=== PATIENT | male | born 1940 | race Caucasian/White ===

== ENCOUNTER 2017-03-04 07:04 | Emergency (ER) | payer MEDICARE ==
[2017-03-04 07:12] VITALS: BP 128/82
--- NOTE | 2017-03-04 08:03 | UC ---
Respiratory Complaint HPI - HPI Summary HPI Summary: PT REPORTS THAT 2 WEEKS AGO HE DEVELOPED A FLU LIKE ILLNESS WITH GOLDBERG, MYALGIAS, COUGH PRODUCTIVE OF YELLOW SPUTUM, NASAL/CHEST CONGESTION. PT REPORTS COUGHING SPAASMS. DEMIES SOB, CP. PT STATES THAT HE HAS NOT BEEEN ALBE TO SHAKE IT. - History of Current Complaint Chief Complaint: UCRespiratory Stated Complaint: COUGH COLD SYMPTOMS Time Seen by Provider: 03/04/17 07:19 Hx Obtained From: Patient Onset/Duration: Gradual Onset, Lasting Weeks - 2, Still Present Timing: Constant Severity Initially: Moderate Severity Currently: Moderate Character: Sputum Description: - YELLOW Aggravating Factors: Allergens Alleviating Factors: Nothing Associated Signs And Symptoms: Positive: URI, Nasal Congestion. Negative: Dyspnea, Fever, Chills, Pleuritic Chest Pain, Wheezing, Hemoptysis, Hoarseness, Sinus Discomfort - Allergies/Home Medications Allergies/Adverse Reactions: Allergies Allergy/AdvReac Type Severity Reaction Status Date / Time No Known Allergies Allergy Verified 04/11/16 09:37 PMH/Surg Hx/FS Hx/Imm Hx Previously Healthy: No Cardiovascular History: Myocardial Infarction GI/ History: Kidney Stones - Surgical History Surgical History: Yes Surgery Procedure, Year, and Place: LEFT ARM AMPUTATION 1997; stent after [place] 2013. VASCECTOMY 1969 - Family History Known Family History: Positive: Cardiac Disease, Hypertension - Social History Occupation: Retired Lives: With Family Alcohol Use: Occasionally Substance Use Type: None Smoking Status (MU): Former Smoker Amount Used/How Often: 1/2 PPD X 30 YEARS Length of Time of Smoking/Using Tobacco: 30 years Have You Smoked in the Last Year: No When Did the Patient Quit Smoking/Using Tobacco: 1990 - Immunization History Most Recent Influenza Vaccination: 2012 Most Recent Tetanus Shot: UNKNOWN Most Recent Pneumonia Vaccination: 2012 Review of Systems Constitutional: Negative Skin: Negative Eyes: Negative ENT: Sore Throat, Nasal Discharge Respiratory: Cough Cardiovascular: Negative Gastrointestinal: Negative Musculoskeletal: Myalgia Neurological: Headache Psychological: Negative All Other Systems Reviewed And Are Negative: Yes Physical Exam Triage Information Reviewed: Yes Appearance: Well-Appearing, No Pain Distress, Well-Nourished Vital Signs: Initial Vital Signs Temp 98.6 F 03/04/17 07:09 Pulse 70 03/04/17 07:09 Resp 18 03/04/17 07:09 BP 128/82 03/04/17 07:09 Pulse Ox 97 03/04/17 07:09 Vital Signs Reviewed: Yes Eyes: Positive: Conjunctiva Clear. Negative: Discharge ENT: Positive: Hearing grossly normal, Pharynx normal, Nasal congestion, Nasal drainage, TMs normal. Negative: Tonsillar swelling, Tonsillar exudate, Trismus , Muffled/hoarse voice Neck: Positive: Supple, Nontender, No Lymphadenopathy Respiratory: Positive: Lungs clear, No respiratory distress, No accessory muscle use, Expiration - PROLONGED AT BASES Cardiovascular: Positive: RRR, No Murmur Musculoskeletal Exam: Normal Neurological: Positive: Alert, Muscle Tone Normal Psychological: Positive: Age Appropriate Behavior Skin Exam: Normal UC Diagnostic Evaluation - Laboratory O2 Sat by Pulse Oximetry: 97 Respiratory Course/Dx - Differential Dx/Diagnosis Differential Diagnosis/HQI/PQRI: Bronchitis, Lower Resp Infection, Sinusitis Provider Diagnoses: BRONCHITIS Discharge - Discharge Plan Condition: Stable Disposition: HOME Prescriptions: Azithromycin TAB* [Zithromax TAB (Z-MINAL) 250 mg #6 tabs] 0 mg PO .SEE INSTRUCTIONS #6 tab Benzonatate CAP* [Tessalon 100 MG CAP*] 100 mg PO TID #30 cap guaiFENesin ER TAB [Mucinex*] 600 mg PO BID PRN #1 box PRN Reason: Cough Patient Education Materials: Acute Bronchitis (ED) Referrals: Willy Arrington MD [Primary Care Provider] - (FOLLOW UP IN 3-5 DAYS) Additional Instructions: INHALED BRONCHODILATORS: You have received a prescription for an inhaled bronchodilator -- a medication which stimulates the airways in the lung to dilate. This improves the flow of air in asthma, bronchitis, and emphysema. These medicines have some similarity to adrenaline, and can cause similar side effects: shakiness, racing heart, and a sense of nervousness. These side effects decrease with time. Contact your doctor if these side effects are severe. Do not over-use the medicine. Too-frequent use of the inhaler may make it ineffective. Call your doctor if the inhaler is not controlling your symptoms at the prescribed doses. EXPECTORANT MEDICATION: WE SENT IN A SCRIPT FOR MUCINEX SO THAT IT IS EASIER FOR YOU TO PICK THE RIGHT MED AT THE PHARMACY. HOWEVER, YOU CAN ALSO GO TO THE [facility] AND BUY PLAIN GUAIFENESIN WITHOU BINDERS OR FILLERS. An expectorant medicine has been prescribed. This type of drug makes mucous thinner, helping the sinuses, nose, and bronchial tubes to remain free of pus and mucous. Expectorants make a cough less severe and more comfortable, and help infected sinuses drain. In general, antihistamines defeat the purpose of the expectorant by making mucous thicker. They should be avoided unless specifically recommended by your physician. TESSALON PERLES: You have received a prescription for Tessalon Perles (benzonatate). This is a non-narcotic medicine for relief of cough. It usually works in about 15- 20 minutes and lasts around four hours. Tessalon Perles should be swallowed. They should not be chewed or dissolved in the mouth (this can produce temporary numbing of the mouth and choking can occur). If you develop any adverse effects such as wheezing, shortness of breath, hives, rash, itching, or lightheadedness, please return at once. WE RECOMMEND THAT YOU HOLD OFF ON TAKING ANTIBIOTICS FOR AT LEAST 2-3 MORE DAYS. IF YOU ARE IMPROVING, YOU WILL NOT NEED IT. AZITHROMYCIN: Azithromycin (Zithromax) is a broad spectrum antibiotic in the same class as erythromycin. It can treat a variety of bacterial infections, but is most frequently used for respiratory infections. Azithromycin is extremely long-lasting. It accumulates in body tissues and continues to kill bacteria for many days. In order to improve absorption, Azithromycin should be taken at least one hour before or two hours after a meal. It does not have the same strong tendency to upset the stomach as erythromycin and is usually very well tolerated. Patients who have had a rash or other true allergic reactions to erythromycin should not take this medication. Call if you develop gastrointestinal distress, severe diarrhea, rash, hives, itching, or shortness of breath. ANYTIME YOU TAKE AN ANTIBIOTIC, IT IS IMPORTANT TO REPLENISH THE BODY'D SUPPLY OF "GOOD BACTERIA." YOU CAN GET GOOD BACTERIA FROM HIGH QUALITY CULTURED FOODS SUCH LOCAL YOGURT, SOUR KRAUT, OLIMPIA ISELA, NATURALLY FERMENTED PICKLES AND PROBIOTIC DRINKS. YOU CAN ALSO GET GOOD BACTERIA FROM A PROBIOTIC SUPPLEMENT.
== END 2017-03-04 08:02 | disposition home or self-care (01) ==
LOC: UCEAST 07:04
DX: J40 Bronchitis, not specified as acute or chronic (principal); Z87.891 Personal history of nicotine dependence
CPT/HCPCS: 99212; G0463

== ENCOUNTER 2018-06-05 07:52 | Emergency (ER) | payer MEDICARE ==
[2018-06-05 08:06] VITALS: BP 136/87
--- NOTE | 2018-06-05 08:32 | UC ---
Respiratory Complaint HPI - HPI Summary HPI Summary: 77 year old male with URI Sx . Headache, sorethroat, feeling unwell for a few days. + cough with phlegm that is now green and productive. 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 sinus pressure worsened this morning been present for about a week and now with headache [ End ] - History of Current Complaint Chief Complaint: UCGeneralIllness Stated Complaint: CONGESTED,COUGH Time Seen by Provider: 06/05/18 08:29 Hx Obtained From: Patient Onset/Duration: Gradual Onset Timing: Constant Pain Intensity: 0 Character: Cough: Productive Associated Signs And Symptoms: Positive: URI, Nasal Congestion - Allergies/Home Medications Allergies/Adverse Reactions: Allergies Allergy/AdvReac Type Severity Reaction Status Date / Time ticagrelor [From Brilinta] Allergy Itching Verified 06/05/18 08:06 PMH/Surg Hx/FS Hx/Imm Hx Previously Healthy: Yes Endocrine History: Dyslipidemia Cardiovascular History: Hypertension GI/ History: Gastroesophageal Reflux - Surgical History Surgical History: Yes Surgery Procedure, Year, and Place: LEFT ARM AMPUTATION 1997; stent after [place] 2013. VASCECTOMY 1969 - Family History Known Family History: Positive: Cardiac Disease, Hypertension - Social History Occupation: Retired Alcohol Use: Occasionally Substance Use Type: None Smoking Status (MU): Former Smoker Amount Used/How Often: 1/2 PPD X 30 YEARS Length of Time of Smoking/Using Tobacco: 30 years Have You Smoked in the Last Year: No When Did the Patient Quit Smoking/Using Tobacco: 1990 - Immunization History Most Recent Influenza Vaccination: 2012 Most Recent Tetanus Shot: UNKNOWN Most Recent Pneumonia Vaccination: 2012 Review of Systems Constitutional: Fatigue ENT: Sore Throat, Ear Ache, Nasal Discharge, Sinus Congestion, Sinus Pain/ Tenderness Respiratory: Cough Is Patient Immunocompromised?: No All Other Systems Reviewed And Are Negative: Yes Physical Exam Triage Information Reviewed: Yes Appearance: Well-Appearing, No Pain Distress, Well-Nourished Vital Signs: Initial Vital Signs Temp 98.2 F 06/05/18 07:59 Pulse 69 06/05/18 07:59 Resp 20 06/05/18 07:59 BP 136/87 06/05/18 07:59 Pulse Ox 96 06/05/18 07:59 Eye Exam: Normal ENT Exam: Normal ENT: Positive: Nasal congestion, TM dull, Sinus tenderness - b/l frontal and maxillary sinus tenderness Dental Exam: Normal Neck exam: Normal Neck: Positive: 1 Respiratory Exam: Normal Cardiovascular Exam: Normal Musculoskeletal Exam: Normal Neurological Exam: Normal Psychological Exam: Normal Skin Exam: Normal UC Diagnostic Evaluation - Laboratory O2 Sat by Pulse Oximetry: 96 Respiratory Course/Dx - Course Course Of Treatment: WITH RECENT corticosteroid concern for mild immunosuppresion -- advise conservative treatment and if sx not improved start oral abx and he is aware of SE like C diff . f/u with PCP or RTO if any concerns - Differential Dx/Diagnosis Differential Diagnosis/HQI/PQRI: Bronchitis, Lower Resp Infection, Sinusitis Provider Diagnoses: sinusitis Discharge - Sign-Out/Discharge Documenting (check all that apply): Patient Departure All imaging exams completed and their final reports reviewed: No Studies - Discharge Plan Condition: Good Disposition: HOME Prescriptions: Amoxicillin/Clavulanate TAB* [Augmentin TAB 875*] 875 mg PO BID 10 Days #20 tab Patient Education Materials: Sinusitis (ED) Referrals: Willy Arrington MD [Primary Care Provider] - 4 Days Additional Instructions: Please continue flonase 2 sprays in each nostril daily and consider starting claritin daily as well. - Billing Disposition and Condition Condition: GOOD Disposition: Home
== END 2018-06-05 08:47 | disposition home or self-care (01) ==
LOC: UCEAST 07:52
DX: J32.9 Chronic sinusitis, unspecified (principal); I10 Essential (primary) hypertension; Z88.8 Allergy status to other drugs, medicaments and biological substances; Z87.891 Personal history of nicotine dependence
CPT/HCPCS: 99212; G0463

== ENCOUNTER 2019-04-06 11:42 | Emergency (ER) | payer MEDICARE ==
--- OUTSIDE RECORDS SUMMARY | 2019-04-06 11:48 | XMS REPORT | Continuity of Care Document ---
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., [facility] WITH [facility], Onset: 06/27/2015 [place] coronary artery without angina [facility] pectoris Coronary arteriosclerosis Bakari Christina M.D., [facility] WITH [facility], Onset: 06/21/2014 [facility] Mixed hyperlipidemia Bakari Christina M.D., [facility] WITH [facility], Onset: 06/21/2014 [facility] True posterior myocardial infarction Bakari Christina M.D., [facility] WITH [facility], Onset: 2013 [facility] Social History Type Date Description Comments Sex Unknown Marital Status Lives With 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 Rash 07/28/2014 Pantoprazole Rash ? 07/28/2014 Inactive Allergies NKDA 06/21/2014 Medications Active Medications SIG Qnty Indications Ordering Date Provider Aspirin 1 by mouth Unknown 81mg Tablets every day Metoprolol Succinate ER 1/2 tab by 45tabs Bakari Christina, 25mg mouth every day M.D., [facility], Tablets ER 24HR [facility] Atorvastatin Calcium take 1 tablet 90tabs Bakari Christina, 20mg at bedtime M.Erickson, [facility] WITH [facility], Tablets [facility] Nitrostat one sl q5min up 25tabs Bakari Christina, 0.4mg Tablets Sub to 3 doses as M.D., [facility], needed [facility] Multi-Vitamin/Minerals 1 by mouth 30tabs Unknown every day Tablets Levocetirizine 1 by mouth Unknown Dihydrochloride every day 5mg Tablets Nasonex 2 sprays to Unknown 50mcg/Act Suspension each nostril twice daily prn Nizatidine take 1 capsule Unknown 150mg Capsules by mouth two times daily Ferrousul once daily Unknown 325(65Fe) mg Tablets Vitamin C Immune Health 1 by mouth Unknown 500mg every day Chewtabs Omeprazole 1 by mouth Unknown 20mg Capsules DR every day Prednisone take four Unknown 1mg Tablets tablets by mouth once daily History Medications Clopidogrel Bisulfate 1 tab by mouth 90tabs Bakari Christina, 07/22/2014 - 75mg daily M.D., [facility], [facility] 06/10/2016 Tablets Pantoprazole Sodium 1 tab by mouth 30tabs Bakari Christina, 06/25/2014 - 40mg every day M.D., [facility] WITH [facility], [facility] 07/27/[address] Cintron 1 tab by mouth 180tabs Unknown - 90mg Tablets twice a day 07/27/2014 Famotidine take one tablet 60tabs Unknown - 20mg Tablets by mouth twice a 02/06/2015 day Calcium daily Unknown - 03/30/2019 Triamcinolone Acetonide 2-3 times every 30units Unknown - day 02/06/2015 0.1% Ointment Tums 2 tabs bid Unknown - 500mg Chewtabs 02/06/2015 Omeprazole 1 by mouth every Unknown - 40mg Capsules DR day 06/26/2015 Probiotic 1 by mouth every Unknown - Capsules day 08/24/2018 Co Q-10 1 by mouth every Unknown - 200mg Capsules day 06/02/2017 Clopidogrel Bisulfate 1 by mouth every Unknown - 75mg day 05/30/2017 Tablets Collagen 1 pill daily Unknown - 500mg Capsules 08/24/2018 Vital Signs Date Vital Result Comment 03/31/2019 8:14am Height 68.5 inches 5'8.50" Weight 203.00 lb with shoes Heart Rate 72 /min BP Systolic Sitting 118 mmHg rue reg cuff BP Diastolic Sitting 80 mmHg rue reg cuff BP Systolic Standing 120 mmHg rue reg cuff BP Diastolic Standing 80 mmHg rue reg cuff Respiratory Rate 14 /min BMI (Body Mass Index) 30.4 kg/m2 Ejection Fraction 45-50% echo. 07/28/14 04/09/2018 2:49pm Height 68.5 inches 5'8.50" Weight 184.00 lb w/ shoes Heart Rate 64 /min BP Systolic Sitting 112 mmHg lue rg cuff BP Diastolic Sitting 76 mmHg lue rg cuff BMI (Body Mass Index) 27.6 kg/m2 Ejection Fraction 57% w/ sts stress 06/17/18 01/28/2018 4:07pm Height 68.5 inches 5'8.50" Weight 192.00 lb w/ shoes Heart Rate 76 /min BP Systolic Sitting 122 mmHg lue rg cuff BP Diastolic Sitting 82 mmHg lue rg cuff BP Systolic Standing 142 mmHg lue rg cuff BP Diastolic Standing 84 mmHg lue rg cuff Respiratory Rate 18 /min BMI (Body Mass Index) 28.8 kg/m2 Ejection Fraction 57% at sts stress test 06/17/17 06/18/2017 2:09pm Height 68.5 inches 5'8.50" Weight 197.00 lb with shoes Heart Rate 70 /min BP Systolic Sitting 112 mmHg rue reg cuff BP Diastolic Sitting 76 mmHg rue reg cuff BP Systolic Standing 116 mmHg rue reg cuff BP Diastolic Standing 80 mmHg rue reg cuff Respiratory Rate 18 /min BMI (Body Mass Index) 29.5 kg/m2 Ejection Fraction 45-50% echo 07/28/2014 06/03/2017 3:07pm Height 68.5 inches 5'8.50" Weight 198.00 lb Heart Rate 86 /min BP Systolic Sitting 110 mmHg rue reg cuff BP Diastolic Sitting 76 mmHg rue reg cuff BP Systolic Standing 110 mmHg rue, reg cuff BP Diastolic Standing 70 mmHg rue, reg cuff BP Systolic Lying Down 110 mmHg lue reg cuff BP Diastolic Lying Down 74 mmHg lue reg cuff Respiratory Rate 18 /min BMI (Body Mass Index) 29.7 kg/m2 Ejection Fraction 45-50% echo 07/28/2014 06/11/2016 9:28am Height 68.5 inches 5'8.50" Weight 190.00 lb Heart Rate 64 /min 72 BP Systolic Sitting 134 mmHg right arm, reg cuff BP Diastolic Sitting 88 mmHg right arm, reg cuff BP Systolic Standing 132 mmHg right arm, reg cuff BP Diastolic Standing 88 mmHg right arm, reg cuff Respiratory Rate 16 /min BMI (Body Mass Index) 28.5 kg/m2 Ejection Fraction 45-50% 07/28/14 06/27/2015 8:27am Height 68.5 inches 5'8.50" Weight 187.00 lb Heart Rate 66 /min 70 BP Systolic Sitting 130 mmHg right arm, reg cuff BP Diastolic Sitting 80 mmHg right arm, reg cuff BP Systolic Standing 114 mmHg right arm, reg cuff BP Diastolic Standing 80 mmHg right arm, reg cuff Respiratory Rate 20 /min BMI (Body Mass Index) 28.0 kg/m2 Ejection Fraction 45-50% 07/28/14 02/07/2015 9:45am Height 68.5 inches 5'8.50" Weight 189.00 lb Heart Rate 64 /min 70 BP Systolic Sitting 126 mmHg right arm, reg cuff BP Diastolic Sitting 86 mmHg right arm, reg cuff BP Systolic Standing 122 mmHg right arm, reg cuff BP Diastolic Standing 86 mmHg right arm, reg cuff Respiratory Rate 20 /min BMI (Body Mass Index) 28.3 kg/m2 Ejection Fraction 45-50% 07/28/14 07/28/2014 3:08pm Height 68.5 inches 5'8.50" Weight 178.00 lb Heart Rate 74 /min 84 BP Systolic Sitting 118 mmHg right arm, reg cuff BP Diastolic Sitting 86 mmHg right arm, reg cuff BP Systolic Standing 118 mmHg right arm, reg cuff BP Diastolic Standing 82 mmHg right arm, reg cuff Respiratory Rate 20 /min BMI (Body Mass Index) 26.7 kg/m2 06/21/2014 3:34pm Height 68.5 inches 5'8.50" Weight 171.00 lb Heart Rate 68 /min 74 BP Systolic Sitting 112 mmHg right arm, reg cuff BP Diastolic Sitting 88 mmHg right arm, reg cuff BP Systolic Standing 114 mmHg right arm, reg cuff BP Diastolic Standing 88 mmHg right arm, reg cuff Respiratory Rate 20 /min BMI (Body Mass Index) 25.6 kg/m2 Results Test Date Facility Test Result H/L Range Note CKMB 08/29/2015 [facility] CKMB ng/mL 1.0 ng/mL N 0.6-6.3 [address] [place] [address] [phone] Laboratory test 08/29/2015 [facility] Troponin-I 0.00 ng/mL N <0.03 1 finding [address] [facility] (TnI) [place] [address] [phone] Creatine Kinase(CK) 48 U/L N 10-223 2 Inr/Protime 07/17/2014 [facility] Inr 0.90 N 0.85-1.06 [address] [place] [address] [phone] Basic Metabolic 07/17/2014 [facility] Sodium 139 mmol/L N 133- 145 Panel [address] [place] [address] [phone] Potassium 3.9 mmol/L N 3.7-5.6 Chloride 106 mmol/L N 101-111 Co2 Carbon Dioxide 28 mmol/L N 22-32 Anion Gap 5 mmol/L N 2-11 Glucose 84 mg/dL N 70-100 Blood Urea Nitrogen 15 mg/dL N 6-24 Creatinine 0.85 mg/dL N 0.67-1.17 BUN/Creatinine Ratio 17.6 N 8-20 Calcium 9.2 mg/dL N 8.6-10.3 Egfr Non- 88.4 N >60 Egfr 113.6 N >60 3 CBC No Diff 07/17/2014 [facility] White Blood 6.5 10^3/uL N 4.8-10.[address] [place] [address] [phone] Red Blood Count 4.58 10^6/uL N 4.0-5.4 Hemoglobin 14.6 g/dL N 14.0-18.0 Hematocrit 43 % N 42-52 Mean Corpuscular Volume 94 fL N 80-94 Mean Corpuscular Hemoglobin 32 pg High 27-31 Mean Corpuscular HGB Conc 34 g/dL N 31-36 Red Cell Distribution Width 13 % N 10.5-15 Platelet Count 189 10^3/uL N 150-450 Mean Platelet Volume 9 um3 N 7.4-10.4 1 Reference Range and Interpretation: TnI (ng/mL) Interpretation Less Than 0.03 ng/mL Not supportive of diagnosis of [place] 0.03 - 0.50 ng/mL Indeterminate: suggest serial studies if clinically indicated. Greater than 0.5 ng/mL Consistent with diagnosis of [place] [address] Arrington 3 Because ethnic data is not always readily available, this report includes an eGFR for both -Americans and non- Americans. The National Kidney Disease Education Program (NKDEP) does not endorse the use of the MDRD equation for patients that are not between the ages of 18 and 70, are , have extremes of body size, muscle mass, or nutritional status, or are non- or non-. According to the National Kidney Foundation, irrespective of diagnosis, the stage of the disease is based on the level of kidney function: Stage Description GFR(mL/min/1.73 m(2)) 1 Kidney damage with normal or decreased GFR 90 2 Kidney damage with mild decrease in GFR 60-89 3 Moderate decrease in GFR 30-59 4 Severe decrease in GFR 15-29 5 Kidney failure <15 (or dialysis) Procedures Date Code Description Status 03/31/2019 65069 EKG Tracing & Interpretation Completed 01/28/2018 35143 EKG Tracing & Interpretation Completed 06/17/2017 04334 Treadmill Interp/Report Only Completed 06/17/2017 25274 Stress Test Supervsn W/Out I/R Completed 06/03/2017 19771 EKG Tracing & Interpretation Completed 06/11/2016 54661 EKG Tracing & Interpretation Completed 02/07/2015 82233 EKG Tracing & Interpretation Completed 07/28/2014 75006 ECHO Transthorasic Realtime 2D W Doppler & Color Flow Hosp Completed 06/21/2014 45288 EKG Tracing & Interpretation Completed 06/15/2014 73999 EKG, Interpretation Only Completed 06/14/2014 75599 ECHO Transthorasic Realtime 2D W Doppler & Color Flow Hosp Completed 06/14/2014 70925 ECHO Transthorasic Realtime 2D W Doppler & Color Flow Hosp Completed 06/14/2014 63126 EKG, Interpretation Only Completed 06/13/2014 12704 Left Heart Cath. Incl S/I Coronaries, Angio S/I V Gram If Completed Done 06/13/2014 81584 EKG, Interpretation Only Completed 06/13/2014 76075 Revascularization Acute Total/Subtotal Occlusion Completed Encounters Type Date Location Provider Dx Diagnosis Office Visit 04/09/2018 [facility] Bakari Christina, R06.02 Shortness of 3:00p Of [employer] AT [facility], breath [facility] Office Visit 01/28/2018 [facility] Bakari Christina, R06.02 Shortness of 3:40p Of [facility] AT [facility], [facility]ED WITH [facility], breath [facility] E78.2 Mixed hyperlipidemia Office Visit 06/18/2017 2:20p [facility] Bakari Christina, R06.02 Shortness of Of [facility] AT [facility], [facility] WITH [facility], breath [facility] Office Visit 06/03/2017 3:00p [facility] Bakari Christina, I25.10 Athscl heart Of [facility] AT [facility], [facility] WITH [facility], disease of [facility] [place] coronary artery w/o ang pctrs E78.2 Mixed hyperlipidemia R06.02 Shortness of breath I25.2 Old myocardial infarction Office Visit 06/11/2016 9:40a [facility] Bakari Christina, I25.10 Athscl heart Of [employer] AT [facility], [facility] WITH [facility], disease of [facility] [place] coronary artery w/o ang pctrs E78.2 Mixed hyperlipidemia Office Visit 06/27/2015 8:40a [facility] Bakari Christina, E78.2 Mixed hyper[facility], [facility] AT [facility] I25.10 Athscl heart disease of [place] coronary artery w/o ang pctrs Office Visit 02/07/2015 [facility] Bakari Christina, 414.01 Coronary 10:[facility], Atherosclerosis [facility] AT [facility] [place] 272.2 Hyperlipidemia Mixed Office Visit 07/28/2014 3:00p [facility] Bakari Christina, 272.2 Hyperlipidemia Mixed Cardiology Of M.Yoandy., FACC, [employer] AT [facility] 410.60 Myocardial Infarc Acute True Clinical Nurse Occupational Medicine Wall Episode Unspec Office Visit 06/21/2014 3:40p [facility] Bakari Christina, 410.60 Myocardial Infarc Of [facility] AT [facility] M.Yoandy., FACC, Acute True Clinical Nurse Occupational Medicine [facility] Wall Episode Unspec 272.2 Hyperlipidemia Mixed 414.01 Coronary Atherosclerosis [place] Office Visit 06/15/2014 1:12p [facility] Bakari Christina, 410.60 Myocardial Infarc Of [facility] [place], FACC, Acute True Clinical Nurse Occupational Medicine [facility] Wall Episode Unspec Office Visit 06/14/2014 1:10p [facility] Bakari Christina, 410.60 Myocardial Infarc Of [facility] Sadie.Yoandy., FACC, Acute True Clinical Nurse Occupational Medicine [facility] Wall Episode Unspec Office Visit 06/13/2014 1:01p [facility] Bakari Christina, 410.60 Myocardial Infarc Of [facility] Sadie.Erickson, FACC, Acute True Clinical Nurse Occupational Medicine [facility] Wall Episode Unspec Plan of Treatment Future Appointment(s):04/15/2019 8:00 am - Traveling ECHO 1 at [facility]06/04/2019 8:30 am - Tiffanie Traore MD at [facility] Dermatology AT [facility]08/09/2019 - Alex Vaz, DO FACCI25.2 Old myocardial infarctionComments:Try using tylenol (acetaminophen) as needed instead of ibuprofen. It is much safer for your heart and stomach.Follow up:1 yearR06.02 Shortness of breathNew Orders:Echocardiogram, Ordered: 03/31/19
[2019-04-06 11:55] VITALS: BP 140/77
--- NOTE | 2019-04-06 12:27 | UC ---
Abdominal Pain Male HPI - HPI Summary HPI Summary: 78 male presents with abdominal pain. He tells me that about a year ago he had fatigue and would become lightheaded with standing - he says that they found his blood and iron levels were low and he began taking an iron supplement and felt much better. He saw GI and had an endoscopy and colonoscopy and pt reports that they found "bleeding". He thinks this is due to chronic prednisone use. Over the last 2 weeks he has been feeling fatigued again and feels that his stomach is bloated. Over the last 3-4 days he has noticed "black stools", but has also been taking an extra iron pill to treat his fatigue - this made him constipated. He had a large BM around 0200 this morning and then did a fleet enema with a subsequent small BM which improved his abdominal cramping slightly. He denies simon red blood in stool or on tissue, denies fever, chills , SOB, chest pain, n/v, dysuria. - History of Current Complaint Chief Complaint: UCAbdominalPain Stated Complaint: STOMACH PAINS Time Seen by Provider: 04/06/19 12:26 Hx Obtained From: Patient Onset/Duration: Sudden Onset Severity Initially: Moderate Severity Currently: Moderate Pain Intensity: 4 Pain Scale Used: 0-10 Numeric - Allergies/Home Medications Allergies/Adverse Reactions: Allergies Allergy/AdvReac Type Severity Reaction Status Date / Time ticagrelor [From Brilinta] Allergy Itching Verified 04/06/19 11:55 Home Medications: Home Medications Cholecalciferol (Vitamin D3) [Vitamin D3] 2,000 unit PO DAILY 04/06/19 [History Confirmed 04/06/19] Fluticasone NASAL SPRAY 50MCG* [Flonase NASAL SPRAY 50MCG*] 1 spray INH DAILY [History Confirmed 04/06/19] LevoCETirizine TAB (NF) [Xyzal TAB (NF)] 1 tab PO DAILY 04/06/19 [History Confirmed 04/06/19] Metoprolol Succinate 0.5 tab PO DAILY 04/06/19 [History Confirmed 04/06/19] predniSONE [Prednisone 5 MG TAB] 4 tab PO DAILY 04/06/19 [History Confirmed ] PMH/Surg Hx/FS Hx/Imm Hx - Additional Past Medical History Additional PMH: GERD Endocrine History: Dyslipidemia Cardiovascular History: Cardiac Disease, Hypertension - Surgical History Surgical History: Yes Surgery Procedure, Year, and Place: LEFT ARM AMPUTATION 1997; 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 VASCECTOMY 1969 - Family History Known Family History: Positive: Cardiac Disease, Hypertension - Social History Occupation: Retired Lives: With Family Alcohol Use: Occasionally Substance Use Type: None Smoking Status (MU): Former Smoker Amount Used/How Often: 1/2 PPD X 30 YEARS Length of Time of Smoking/Using Tobacco: 30 years Have You Smoked in the Last Year: No When Did the Patient Quit Smoking/Using Tobacco: 1990 - Immunization History Most Recent Influenza Vaccination: 2012 Most Recent Tetanus Shot: UNKNOWN Most Recent Pneumonia Vaccination: 2012 Review of Systems All Other Systems Reviewed And Are Negative: Yes Constitutional: Positive: Fatigue Skin: Positive: Negative Eyes: Positive: Negative ENT: Positive: Negative Respiratory: Positive: Negative Cardiovascular: Positive: Negative Gastrointestinal: Positive: Abdominal Pain Genitourinary: Positive: Negative Motor: Positive: Negative Neurovascular: Positive: Negative Musculoskeletal: Positive: Negative Neurological: Positive: Negative Psychological: Positive: Negative Physical Exam - Summary Physical Exam Summary: GENERAL: NAD. WDWN. No pain distress. SKIN: No rashes, sores, lesions, or open wounds. Mucous membranes moist and reflect adequate perfusion. No pallor. NECK: Supple. Nontender. No lymphadenopathy. CHEST: CTAB. No r/r/w. No accessory muscle use. Breathing comfortably and in no distress. CV: RRR. Without m/r/g. Pulses intact. Cap refill <2seconds ABDOMEN: Mildly distended. Soft. NTTP. No guarding. Bowel sounds present NEURO: Alert. PSYCH: Age appropriate behavior. Triage Information Reviewed: Yes Vital Signs: Initial Vital Signs Temp 97.8 F 04/06/19 11:48 Pulse 78 04/06/19 11:48 Resp 18 04/06/19 11:48 BP 140/77 04/06/19 11:48 Pulse Ox 100 04/06/19 11:48 Vital Signs Reviewed: Yes Abd Pain Male Course/Dx - Course Course Of Treatment: Abdominal XR: IMPRESSION: #. No acute abdominal pelvic pathologic process evident. #. Unchanged moderately large hiatal hernia. I discussed with the pt and his with him today that given his fatigue, dark stool, hx if DENISSE, and GI "bleeding" - I recommend further evaluation in the ED. He and his were agreeable to this and his will drive him. I believe he requires po contrast CT and labwork to further eval his DENISSE. - Differential Dx/Clinical Impression Provider Diagnosis: Abdominal cramping, Dark stools, GERD (gastroesophageal reflux disease) Discharge - Sign-Out/Discharge Documenting (check all that apply): Patient Departure All imaging exams completed and their final reports reviewed: Yes - Discharge Plan Condition: Stable Disposition: HOME-RECOMMEND TO ED Referrals: Willy Arrington MD [Primary Care Provider] - Additional Instructions: I recommend that you go to the ER for further evaluation of your abdominal pain and dark stools - Billing Disposition and Condition Condition: STABLE Disposition: Home-Recommend to ED
== END 2019-04-06 13:20 | disposition home health service (06) ==
LOC: UCEAST 11:42
DX: R10.9 Unspecified abdominal pain (principal); K21.9 Gastro-esophageal reflux disease without esophagitis; R19.5 Other fecal abnormalities; Z87.891 Personal history of nicotine dependence
CPT/HCPCS: 74019; 99212; G0463

== ENCOUNTER 2019-04-06 13:49 | Observation (INO) | payer MEDICARE ==
[2019-04-06 14:19] LABS: ABS Basophils 0.1 10^3/ul (0-0.2); ABS Eosinophils 0.1 10^3/ul (0-0.6); ABS Lymphocytes 1.5 10^3/ul (1.0-4.8); ABS Monocytes 1.2 10^3/ul (0-0.8); ABS Neutrophils 10.4 10^3/ul (1.5-7.7); Eosinophil % 0.5 %; Hematocrit 46 % (42-52); Hemoglobin 15.3 g/dL (14.0-18.0); Lymphocyte % 11.6 %; Mean Corpuscular HGB Conc 34 g/dL (31-36); Mean Corpuscular Hemoglobin 32 pg (27-31); Mean Corpuscular Volume 96 fL (80-94); Mean Platelet Volume 9.9 fL (7.4-10.4); Platelet Count 204 10^3/uL (150-450); Red Blood Count 4.77 10^6 /uL (4.18-5.48); Red Cell Distribution Width 13 % (10-15); White Blood Count 13.2 10^3/uL (3.5-10.8)
[2019-04-06 14:42] LABS: Albumin 4.2 g/dL (3.2-5.2); Albumin/Globulin Ratio 1.5 (1-3); BUN/Creatinine Ratio 15.9 (8-20); C Reactive Protein 47.99 mg/L (<8.01); Calcium 9.3 mg/dL (8.6-10.3); EGFR African American 109.9 (>60); EGFR Non-African American 90.9 (>60); Globulin 2.8 g/dL (2-4); Potassium 3.5 mmol/L (3.5-5.0); Total Bilirubin 1.1 mg/dL (0.2-1.0)
[2019-04-06] MEDS ORDERED: Iohexol 300* (CONTRAST) 10 ML SDV IV ONE (15:37)
[2019-04-06] MEDS ORDERED: NS 0.9% 1000 ML** 1,000 ML IV ONE (15:38)
[2019-04-06 17:26] LABS: Erythrocyte Sed Rate 7 mm/Hr (0-19)
[2019-04-06] MEDS ORDERED: Morphine 4 MG/ML VIAL (1 ml) 4 MG/ML VIAL IV ONE (17:53)
[2019-04-06] MEDS ORDERED: Ondansetron INJ* 2 MG/ML VIAL IV ONE (17:53)
[2019-04-06 18:07] LABS: Urine Appearance Clear; Urine Bilirubin Negative (Negative); Urine Blood Negative (Negative); Urine Color Yellow; Urine Glucose Negative (Negative); Urine Ketones Negative (Negative); Urine Nitrite Negative (Negative); Urine Protein Negative (Negative); Urine Urobilinogen Negative (Negative)
--- NOTE | 2019-04-06 19:50 | ED ---
Abdominal Pain/Male - HPI Summary HPI Summary: Patient complains of diffuse abdominal pain starting last night which has been persistent until today. Patient states he does have history of constipation due to taking iron pills, but had bowel movements today. X-ray at urgent care today negative for constipation. Patient also states he has black stools due to iron pills. Denies fever, cough, sore throat, CP, SOB, N/V/D, change in urine. - History of Current Complaint Chief Complaint: EDAbdPain Stated Complaint: ABD PAIN PER PT Time Seen by Provider: 04/06/19 13:57 Hx Obtained From: Patient Onset/Duration: Sudden Onset Timing: Constant Severity Initially: Severe Severity Currently: Moderate Pain Intensity: 6 Pain Scale Used: 0-10 Numeric Location: Diffuse Radiates: No Character: Sharp, Burning, Cramping Aggravating Factor(s): Nothing Alleviating Factor(s): Nothing Associated Signs And Symptoms: Positive: Negative - Allergies/Home Medications Allergies/Adverse Reactions: Allergies Allergy/AdvReac Type Severity Reaction Status Date / Time ticagrelor [From Brilinta] Allergy Itching Verified 04/06/19 11:55 Home Medications: Home Medications Ferrous Sulfate TAB* 325 mg PO DAILY 04/06/19 [History Confirmed 04/06/19] Metoprolol Succinate XL TAB* [Toprol XL TAB*] 12.5 mg PO DAILY 04/06/19 [ History Confirmed 04/06/19] Multivitamins/Minerals TAB* [Theragran/minerals TAB*] 1 tab PO DAILY 04/06/19 [ History Confirmed 04/06/19] Nizatidine 150 mg PO BID 04/06/19 [History Confirmed 04/06/19] Omeprazole (Nf) [Prilosec (NF)] 40 mg PO DAILY 04/06/19 [History Confirmed 04/06] predniSONE TAB* [Deltasone TAB*] 20 mg PO DAILY 04/06/19 [History Confirmed ] PMH/Surg Hx/FS Hx/Imm Hx Endocrine/Hematology History: Denies: Hx Diabetes, Hx Thyroid Disease Cardiovascular History: Reports: Hx Hypercholesterolemia, Hx Hypertension Denies: Hx Angina, Hx Coronary Artery Disease, Hx Myocardial Infarction, Hx Valvular Heart Disease Respiratory History: Denies: Hx Asthma, Hx Chronic Obstructive Pulmonary Disease (COPD) GI History: Reports: Hx Gastroesophageal Reflux Disease Denies: Hx Ulcer History: Reports: Hx Kidney Stones - 3 yrs ago Denies: Hx Renal Disease Musculoskeletal History: Reports: Hx Arthritis - BOTH KNEES Sensory History: Reports: Hx Cataracts - BILATERAL, Hx Contacts or Glasses Denies: Hx Hearing Aid Opthamlomology History: Reports: Hx Cataracts - BILATERAL, Hx Contacts or Glasses EENT History: Denies: Hx Deafness Neurological History: Denies: Hx Developmental Delay - Cancer History Cancer Type, Location and Year: SKIN CANCER, EARS, CHEEK, 2010 - Surgical History Surgery Procedure, Year, and Place: LEFT ARM AMPUTATION 1997; stent after HI 2013. VASCECTOMY 1970 Hx Anesthesia Reactions: No Infectious Disease History: No Infectious Disease History: Reports: Hx Shingles Denies: Hx Clostridium Difficile, Hx Hepatitis, Hx Human Immunodeficiency Virus (HIV), Hx of Known/Suspected MRSA, Hx Tuberculosis, Hx Known/Suspected VRE , Hx Known/Suspected VRSA, History Other Infectious Disease, Traveled Outside the [place] in Last 30 Days - Family History Known Family History: Positive: Cardiac Disease, Hypertension - Social History Alcohol Use: Occasionally Substance Use Type: Reports: None Smoking Status (MU): Former Smoker Amount Used/How Often: 1/2 PPD X 30 YEARS Length of Time of Smoking/Using Tobacco: 30 years Have You Smoked in the Last Year: No Review of Systems Constitutional: Negative Eyes: Negative ENT: Negative Cardiovascular: Negative Respiratory: Negative Positive: Abdominal Pain Genitourinary: Negative Musculoskeletal: Negative Skin: Negative Neurological: Negative Psychological: Normal All Other Systems Reviewed And Are Negative: Yes Physical Exam - Summary Physical Exam Summary: Abdomen mildly tender to palpation diffusely. Triage Information Reviewed: Yes Vital Signs On Initial Exam: Initial Vitals Temp Pulse Resp BP Pulse Ox 98.6 F 82 18 147/90 95 04/06/19 13:54 04/06/19 13:54 04/06/19 13:54 04/06/19 13:54 04/06/19 13:54 Vital Signs Reviewed: Yes Appearance: Positive: Well-Appearing Skin: Positive: Warm Head/Face: Positive: Normal Head/Face Inspection Eyes: Positive: Normal Neck: Positive: Supple Respiratory/Lung Sounds: Positive: Clear to Auscultation Cardiovascular: Positive: Normal Abdomen Description: Positive: Other: Musculoskeletal: Positive: Normal Neurological: Positive: Normal Psychiatric: Positive: Normal AVPU Assessment: Alert - Maybell Coma Scale Best Eye Response: 4 - Spontaneous Best Motor Response: 6 - Obeys Commands Best Verbal Response: 5 - Oriented Coma Scale Total: 15 Diagnostics - Vital Signs Vital Signs Temp Pulse Resp BP Pulse Ox 04/06/19 17:00 73 84 04/06/19 16:00 75 95 04/06/19 15:30 75 95 04/06/19 13:54 98.6 F 82 18 147/90 95 - Laboratory Lab Results: Lab Results 04/06/19 04/06/19 04/06/19 Range/Units 14:09 14:09 14:09 WBC 13.2 H (3.5-10.8) 10^3/uL RBC 4.77 (4.18-5.48) 10^6 /uL Hgb 15.3 (14.0-18.0) g/dL Hct 46 (42-52) % MCV 96 H (80-94) fL MCH 32 H (27-31) pg MCHC 34 (31-36) g/dL RDW 13 (10-15) % Plt Count 204 (150-450) 10^3/uL MPV 9.9 (7.4-10.4) fL Neut % (Auto) 78.3 % Lymph % (Auto) 11.6 % [place]ayson % (Auto) 9.1 % Eos % (Auto) 0.5 % Baso % (Auto) 0.5 % Absolute Neuts (auto) 10.4 H (1.5-7.7) 10^3/ul Absolute Lymphs (auto) 1.5 (1.0-4.8) 10^3/ul Absolute Monos (auto) 1.2 H (0-0.8) 10^3/ul Absolute Eos (auto) 0.1 (0-0.6) 10^3/ul Absolute Basos (auto) 0.1 (0-0.2) 10^3/ul Absolute Nucleated RBC 0.0 10^3/ul Nucleated RBC % 0.0 ESR 7 (0-19) mm/Hr Sodium 136 (135-145) mmol/L Potassium 3.5 (3.5-5.0) mmol/L Chloride 103 (101-111) mmol/L Carbon Dioxide 23 (22-32) mmol/L Anion Gap 10 (2-11) mmol/L BUN 13 (6-24) mg/dL Creatinine 0.82 (0.67-1.17) mg/dL Est GFR ( Amer) 109.9 (>60) Est GFR (Non-Af Amer) 90.9 (>60) BUN/Creatinine Ratio 15.9 (8-20) Glucose 107 H (70-100) mg/dL Lactic Acid 1.8 (0.5-2.0) mmol/L Calcium 9.3 (8.6-10.3) mg/dL Total Bilirubin 1.10 H (0.2-1.0) mg/dL AST 17 (13-39) U/L ALT 15 (7-52) U/L Alkaline Phosphatase 84 (34-104) U/L Troponin I 0.00 (<0.04) ng/mL C-Reactive Protein 47.99 H (<8.01) mg/L Total Protein 7.0 (6.4-8.9) g/dL Albumin 4.2 (3.2-5.2) g/dL Globulin 2.8 (2-4) g/dL Albumin/Globulin Ratio 1.5 (1-3) Urine Color Urine Appearance Urine pH (5-9) Ur Specific [place] (1.010-1.030) Urine Protein (Negative) Urine Ketones (Negative) Urine Blood (Negative) Urine Nitrate (Negative) Urine Bilirubin (Negative) Urine Urobilinogen (Negative) Ur Leukocyte Esterase (Negative) Urine Glucose (Negative) 04/06/19 04/06/19 Range/Units 17:52 17:56 WBC (3.5-10.8) 10^3/uL RBC (4.18-5.48) 10^6 /uL Hgb (14.0-18.0) g/dL Hct (42-52) % MCV (80-94) fL MCH (27-31) pg MCHC (31-36) g/dL RDW (10-15) % Plt Count (150-450) 10^3/uL MPV (7.4-10.4) fL Neut % (Auto) % Lymph % (Auto) % [place] % (Auto) % Eos % (Auto) % Baso % (Auto) % Absolute Neuts (auto) (1.5-7.7) 10^3/ul Absolute Lymphs (auto) (1.0-4.8) 10^3/ul Absolute Monos (auto) (0-0.8) 10^3/ul Absolute Eos (auto) (0-0.6) 10^3/ul Absolute Basos (auto) (0-0.2) 10^3/ul Absolute Nucleated RBC 10^3/ul Nucleated RBC % ESR (0-19) mm/Hr Sodium (135-145) mmol/L Potassium (3.5-5.0) mmol/L Chloride (101-111) mmol/L Carbon Dioxide (22-32) mmol/L Anion Gap (2-11) mmol/L BUN (6-24) mg/dL Creatinine (0.67-1.17) mg/dL Est GFR ( Amer) (>60) Est GFR (Non-Af Amer) (>60) BUN/Creatinine Ratio (8-20) Glucose (70-100) mg/dL Lactic Acid 1.7 (0.5-2.0) mmol/L Calcium (8.6-10.3) mg/dL Total Bilirubin (0.2-1.0) mg/dL AST (13-39) U/L ALT (7-52) U/L Alkaline Phosphatase (34-104) U/L Troponin I (<0.04) ng/mL C-Reactive Protein (<8.01) mg/L Total Protein (6.4-8.9) g/dL Albumin (3.2-5.2) g/dL Globulin (2-4) g/dL Albumin/Globulin Ratio (1-3) Urine Color Yellow Urine Appearance Clear Urine pH 7.0 (5-9) Ur Specific [place] 1.060 H (1.010-1.030) Urine Protein Negative (Negative) Urine Ketones Negative (Negative) Urine Blood Negative (Negative) Urine Nitrate Negative (Negative) Urine Bilirubin Negative (Negative) Urine Urobilinogen Negative (Negative) Ur Leukocyte Esterase Negative (Negative) Urine Glucose Negative (Negative) Result Diagrams: 04/06/19 14:09 04/06/19 14:09 Lab Statement: Any lab studies that have been ordered have been reviewed, and results considered in the medical decision making process. Abdominal Pain Male Course/Dx - Course Course Of Treatment: Patient complains of diffuse abdominal pain starting last night which has been persistent until today. Patient states he does have history of constipation due to taking iron pills, but had bowel movements today. X-ray at urgent care today negative for constipation. Patient also states he has black stools due to iron pills. Denies fever, cough, sore throat , CP, SOB, N/V/D, change in urine. Vital signs within normal limits. WBC 13. CRP 48. CT abdomen and pelvis positive for abnormal gallbladder findings and possible diverticulitis. Ultrasound gallbladder positive for distended gallbladder with minimally thickened and hypervascular wall and small amount appear he cholecystic fluid. Possible common bile duct dilatation at 8 mm. No shadowing gallstones identified. Discussed patient with surgery electronic design engineer Dr. Matthews who cannot and examined patient. After exam and review of imaging Dr. Matthews considered cholecystitis likely and recommended admission to hospitalist. dr Matthews will admit - Diagnoses Provider Diagnoses: Cholecystitis Discharge - Sign-Out/Discharge Documenting (check all that apply): Patient Departure Patient Received Moderate/Deep Sedation with Procedure: No - Discharge Plan Condition: Stable Disposition: ADMITTED TO [facility] - Billing Disposition and Condition Condition: STABLE Disposition: Admitted to [facility]
[2019-04-06] MEDS ORDERED: Piperacillin/Tazobac (*) 3.375 GM BAG ONE (20:05)
[2019-04-06] MEDS ORDERED: HYDROmorphone INJ* 0.5 MG/0.5 ML SYRINGE IV SLOW PU PRN (20:08)
[2019-04-06] MEDS ORDERED: Ondansetron INJ* 2 MG/ML VIAL IV PRN (20:08)
[2019-04-06] MEDS ORDERED: ZOSYN 3.375 GM x ONE DOSE over 30 miuntes IVPB ×2 (20:30)
[2019-04-06] MEDS ORDERED: HYDROmorphone INJ1* 1 MG/ML SYRINGE IV SLOW PU PRN (21:03)
[2019-04-06] MEDS: Metoprolol Succinate XL TAB* 25 MG PO SCH (22:32)
[2019-04-06] MEDS: NS 0.9% 1000 ML** 1,000 ML IV SCH (22:36)
--- NOTE | 2019-04-06 23:08 | CONS ---
CONSULTATION REPORT: DATE OF CONSULT: 04/06/19 REQUESTING PHYSICIAN: Dhruv Matthews MD REASON FOR CONSULT: Medical management of polymyalgia rheumatica and preop clearance. HEALTHCARE PROXY: Keila, the patient's . CODE STATUS: DNR/DNI. CHIEF COMPLAINT: Right upper quadrant pain for several hours. HISTORY OF PRESENT ILLNESS: Mr. Handy is a 78-year-old man with a history of coronary artery disease, polymyalgia rheumatica on current steroid taper and history of peptic ulcer disease complicated by anemia, who is presenting with right upper quadrant abdominal pain that awoke him from sleep. He denies associated fevers, chills, nausea, vomiting, constipation, diarrhea. The pain progressed throughout the day and he reports that he had decreased appetite associated with this pain. He denies recent shortness of breath, dyspnea on exertion, paroxysmal nocturnal dyspnea, chest pain, or other recent new cardiac or pulmonary issues. He states that he is able to walk a few miles and generally walks at least 2 miles per day and also is an active shuffleboard player. He is independent in all of his activities of daily living. PAST MEDICAL HISTORY: 1. Coronary artery disease. The patient had myocardial infarction in 2004 with totally occluded circ with stent placement ex Myoview in 2017 with low to intermediate risk solely based on decreased exercise tolerance without symptoms or EKG changes. He had no wall motion abnormalities and his EF was 37%. 2. Polymyalgia rheumatica, managed by his PCP, currently on prednisone taper. 3. History of peptic ulcer disease, complicated by iron deficiency anemia, managed by Dr. Yuan, now this issue is resolved. 4. Nephrolithiasis in 2016. 5. 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 6. Allergic rhinitis. CURRENT MEDICATIONS: 1. Aspirin 81 mg daily. 2. Prednisone 4 mg daily taper with decreasing 1 mg every 2 weeks. 3. Metoprolol succinate 12.5 mg nightly. 4. Atorvastatin 20 mg nightly. 5. Nitro 0.4 mg sublingual every 5 minutes as needed. 6. Levocetirizine 5 mg daily. 7. Nizatidine 150 mg twice a day. 8. Ferrous sulfate once daily. 9. Vitamin C once daily. 10. Omeprazole 20 mg daily. 11. Multivitamin. ALLERGIES: BRILINTA caused itching. FAMILY HISTORY: Father of an PR at age 68, was a lifelong smoker. Mother from natural causes at age 95. 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 He now stays active playing shuffleboard and going on long walks. He smoked from age 18 to 51 approximately 1 pack per day. He has alcoholic beverages occasionally, but generally less than 2 per week. He lives with his Keila who is also his healthcare proxy. He denies use of other drugs. ROS: A complete 10-point ROS was performed and pertinent positives and negatives are listed in the HPI. PHYSICAL EXAM: The patient is afebrile. Heart rate 70s, blood pressure 157/90 , respiratory rate 18, oxygen saturation 95% on room air. In general, he is a well- appearing man in no acute distress. Alert and interactive, very pleasant. Neck: No JVD, supple. HEENT: Pupils equal, round, and reactive to light and moist mucous membranes. Chest: Regular rate and rhythm. No murmurs , gallops or rubs. Lungs: Clear to auscultation bilaterally. Abdomen: Soft, tender to deep palpation in the right upper quadrant. No guarding or rebound. Normoactive bowel sounds. Positive Luu sign. Extremities: Left hand status post traumatic amputation, well-healed. Extremities are warm, well perfused. No evidence of edema. Psych: A and O x3. No focal weakness. DIAGNOSTIC STUDIES/LAB DATA: Labs reviewed and significant for WBC 13.2 with neutrophils 78%. ESR 7. Creatinine 0.82. Bilirubin 1.1. CRP 48. UA clear. Gallbladder ultrasound with no shadowing gallstones, but with layering gallbladder sludge. Distended gallbladder with minimally thickened and hypervascular wall and a small amount of pericholecystic fluid. Possible common bile duct dilatation 8 mm, but the visualization is limited by bowel gas. Abdomen and pelvis CT with distended gallbladder with hyperenhancing wall of the gallbladder, possibility of cholecystitis should be considered, fatty infiltration of head of pancreas without focal mass with suggestion of diverticulitis without evidence of peridiverticular abscess. EKG, a normal sinus rhythm, rate 73. Normal axes. No pathologic Q-waves. Submillimeter ST-depressions in V3 through V5. All of this is unchanged from prior EKG in 2015. ASSESSMENT AND PLAN: Mr. Handy is a 78-year-old man with a history of coronary artery disease, polymyalgia rheumatica, and peptic ulcer disease since resolved, who is presenting with right upper quadrant pain concerning for acute cholecystitis by imaging. Medicine asked to consult for management of PMR as well as medical clearance. 1. Perioperative clearance: The patient's RCRI is 1 with his Cadena 0.4%. He is experiencing no active signs of cardiopulmonary disease. His troponin is negative. He does not have diabetes or history of pulmonary disease. His functional capacity is greater than 4 METS, so no further cardiac testing is needed prior to surgery, so he is medically optimized for the OR. 2. Polymyalgia rheumatica. We will continue the patient's steroid taper at 4 mg. He is to switch to 3 mg of prednisone on 04/08/19. 3. History of peptic ulcer disease complicated by iron deficiency anemia. The patient no longer has anemia. We will continue his home PPI and nizatidine. 4. Coronary artery disease with history of myocardial infarction, status post stenting. Continue the patient's home aspirin and atorvastatin. Surgery is okay continuing aspirin on day of operation. Continue home metoprolol 12.5 mg nightly. 5. Acute cholecystitis. Continue Zosyn and fluids as per Surgery. It seems the patient will go to the OR tomorrow, so he is to remain n.p.o. at midnight. 6. Seasonal allergies: The patient states these are only when he is in [place] so he does not need those home medications continued. 7. DVT prophylaxis being held for surgery. 8. Code status: He is do not resuscitate. TIME SPENT: Approximately 60 minutes was spent on consultation on this patient , more than half of which was spent at bedside for interview and exam. [id number]/CPS #: [id number] [facility] HOSPITALYoandy
--- NOTE | 2019-04-06 23:25 | HP ---
CC: Dr. Willy Arrington, [facility] * ADMISSION HISTORY AND PHYSICAL: DATE OF ADMISSION: 04/06/19 REFERRING PROVIDER: Dr. Kranthi Kline, emergency room. REASON FOR ADMISSION: Abdominal pain. CHIEF COMPLAINT: Epigastric and right upper quadrant abdominal pain. HISTORY OF PRESENT ILLNESS: Mr. Cesario Handy is a 78-year-old gentleman with a history of coronary artery disease who had an MRI several years ago with stent placement, polymyalgia rheumatica, erosive esophagitis with gastroesophageal reflux disease and a history of kidney stones who presented to the emergency room this afternoon after he awoke about 2 o'clock this morning with upper abdominal pain in a band-like distribution mainly on the right, but extending over the left side as well. This was not associated with nausea or vomiting nor did he have fevers, shakes or chills. He did not have any lower abdominal discomfort and he did not have diarrhea. He ate a large meal going to bed and he was fine over the weekend. He has noted no jaundice. There has been no change in his urine color. He has had no waqas colored stools. When seen in the emergency room, he was noted to be afebrile with stable vital signs and a heart rate in the 70s and 80s. He was noted to have a distended abdomen with upper abdominal tenderness. PAST MEDICAL HISTORY: 1. Coronary artery disease with history of TX and stent placement. 2. Polymyalgia rheumatica. 3. Gastroesophageal disease with reflux and erosive esophagitis causing anemia in the past. 4. History of kidney stones. PAST SURGICAL HISTORY: 1. 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 2. ESWL. MEDICATIONS: Include: 1. Lipitor 20 mg q.p.m. 2. Aspirin 81 mg daily. 3. Vitamin C. 4. Fluticasone nasal spray 1 daily. 5. Ferrous sulfate 325 mg p.o. daily. 6. Vitamin D daily. 7. Metoprolol 12.5 mg daily. 8. Xyzal 5 mg daily. 9. Nizatidine 150 mg p.o. b.i.d. 10. Multivitamins. 14. Omeprazole 40 mg daily. 15. Prednisone 4 mg daily. ALLERGIES: To BRILINTA, which causes a rash. SOCIAL HISTORY: Socially, he quit smoking many years ago. He drinks some alcohol on a very rare social basis. 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 He lives in [place] with his . Denies use of illicit drugs. REVIEW OF SYSTEMS: Cerebrovascular: No dizziness or visual disturbances. Cardiovascular: He has had no recent chest pain or shortness of breath, although he was apparently anemic several years ago causing shortness of breath and this was felt secondary to the erosive esophagitis. GI: As per above. He takes his proton pump inhibitors. He has had no dysphagia. : No urgency or hematuria. PHYSICAL EXAMINATION GENERAL: He is a well-developed, well-nourished male who appears to be pleasant , sitting upright in bed. VITAL SIGNS: Temperature 98.6, pulse 73, blood pressure 147/90. HEENT: Sclerae are anicteric. Oral mucosa is slightly dry. Trachea was midline. LUNGS: Clear to auscultation with normal respiratory effort. HEART: Regular rate and rhythm without murmurs, rubs, or gallops. ABDOMEN: Soft but somewhat distended. There are no prior surgical incisions or hernias noted. He has diminished bowel sounds throughout. He has tenderness in the epigastric and right upper quadrant abdominal pain on deeper palpation with some voluntary guarding. I appreciate no left lower quadrant abdominal discomfort. There is no left upper quadrant pain. There is no right lower quadrant abdominal discomfort. PSYCHIATRIC: He is awake, alert, and oriented x3. He has normal judgment and insight. LABORATORY DATA: Laboratory workup included a white blood cell count of 13, 000 without anemia. Electrolytes, BUN and creatinine were all within normal limits. He had a total bilirubin of 1.1 and a C-reactive protein to 47.99. IMAGING: Due to his generalized abdominal pain, he underwent a CT scan of the abdomen and pelvis. I did review these images. It shows a distended gallbladder with some hyperenhancing wall of the gallbladder and some gallbladder wall thickening suggesting the possibility of acute cholecystitis. No gallstones noted. There is also concern of some pericolonic infiltration of the fat noted in the left lower quadrant. This may represent diverticulitis, but no abscess or other acute findings. In light of his gallbladder findings on the CT scan, he underwent a gallbladder ultrasound. This shows no shadowing gallstones, but layering gallbladder sludge. There was distended gallbladder with minimally thickened and hypervascular wall and a small amount of pericholecystic fluid. This was felt possibly secondary to acute acalculous cholecystitis. Common bile duct measured 8 mm, but visualization was limited by bowel gas. In light of his persistent abdominal pain, surgical consultation was obtained and after review of his workup, he was admitted to the surgical service with medical consultation. IMPRESSION: 1. Epigastric right upper quadrant abdominal pain. He has a CT scan as well as an ultrasound, which showed thickening of the gallbladder wall with gallbladder sludge and some pericholecystic fluid. He has tenderness in the right upper quadrant consistent with an acalculous cholecystitis, although smaller stones may have been missed and he does have biliary sludge. There was mild dilation of the bile duct. However, his LFTs are normal other than his total bilirubin of 1.1. 2. Coronary artery disease with a history of a stent and myocardial infarction. 3. Polymyalgia rheumatica on prednisone, tapering. 4. Gastroesophageal reflux disease. PLAN: After reviewing his history and physical exam and workup, I feel that he has acute acalculous cholecystitis. I would recommend that he be admitted this evening to start on IV antibiotics and IV fluids. I would recommend he proceed with a laparoscopic cholecystectomy as soon as he can be seen by Medicine and assessed from a Cardiology standpoint for clearance with general anesthesia for a laparoscopic cholecystectomy. I do not believe that he has a sigmoid diverticulitis that is possibly noted on the CT scan by his clinical findings. 1. The patient will be admitted to the short stay surgical service. 2. Medical consultation will be obtained. 3. I have discussed his care with Dr. Garsia. We will see him tonight. 4. IV Zosyn will be started. 5. He will be kept n.p.o. after midnight. 6. Repeat laboratory values in the morning. 7. Plan laparoscopic cholecystectomy tomorrow. The procedure was discussed with the patient and his and the risks of that including bleeding, infection, intraabdominal abscess formation, injury to peritoneal and retroperitoneal structures and the possibility of an open procedure were explained. If there are medical contraindications to surgery and further workup is required , we will continue with IV antibiotics and proceed accordingly. [id number] #: [id number] YEIMI
[2019-04-07] MEDS: Famotidine TAB* 20 MG PO SCH ×3 (00:25→21:11)
[2019-04-07] MEDS: Piperacillin/Tazobactam VIAL*) 3.375 GM in NS 0.9% 100 ML* 100 ML IVPB SCH ×4 (02:30→20:55)
[2019-04-07 07:08] LABS: ABS Eosinophils 0.2 10^3/ul (0-0.6); ABS Lymphocytes 1.5 10^3/ul (1.0-4.8); ABS Neutrophils 5.3 10^3/ul (1.5-7.7); Eosinophil % 2.9 %; Hematocrit 39 % (42-52); Hemoglobin 13.6 g/dL (14.0-18.0); Lymphocyte % 18.8 %; Mean Corpuscular HGB Conc 35 g/dL (31-36); Mean Corpuscular Hemoglobin 33 pg (27-31); Mean Corpuscular Volume 95 fL (80-94); Mean Platelet Volume 10.7 fL (7.4-10.4); Platelet Count 165 10^3/uL (150-450); Red Blood Count 4.12 10^6 /uL (4.18-5.48); Red Cell Distribution Width 13 % (10-15); White Blood Count 8.1 10^3/uL (3.5-10.8)
[2019-04-07] MEDS: NS 0.9% 1000 ML** 1,000 ML IV SCH ×3 (07:09→22:42)
[2019-04-07 07:22] LABS: Calcium 8.1 mg/dL (8.6-10.3); Potassium 3.7 mmol/L (3.5-5.0)
[2019-04-07 07:27] LABS: BUN/Creatinine Ratio 14.3 (8-20); EGFR African American 118.2 (>60); EGFR Non-African American 97.7 (>60)
[2019-04-07] MEDS: Aspirin EC TAB* 81 MG TAB.EC PO SCH (08:28)
[2019-04-07] MEDS ORDERED: Famotidine IV* 10 MG/ML 2 ML (20 mg) IV ONE (08:32)
[2019-04-07] MEDS ORDERED: Midazolam* 1 MG/ML 5 ML VIAL (5 MG) ONE (08:42)
[2019-04-07] MEDS ORDERED: fentaNYL* 50 MCG/ML 2 ML VIAL (100 MCG VIAL) ONE ×2 (08:42→10:34)
[2019-04-07] MEDS ORDERED: Rocuronium* 10 MG/ML VIAL ONE (08:42)
[2019-04-07] MEDS ORDERED: Famotidine IV* 10 MG/ML 2 ML (20 mg) ONE (08:46)
[2019-04-07] MEDS ORDERED: predniSONE TAB* 1 MG PO SCH (09:00)
[2019-04-07] MEDS ORDERED: Lactated Ringers 1000 ML Bag* 1,000 ML IV SCH (09:00)
[2019-04-07] MEDS ORDERED: Bupivacaine 0.25% EPI 200,000* 30 ML SDV ONE (09:39)
[2019-04-07] MEDS ORDERED: Lidocaine 2% PF * 5 ML VIAL ONE (10:27)
[2019-04-07] MEDS ORDERED: DiMENhydriNATE IV* 50 MG/ML VIAL ONE (10:27)
[2019-04-07] MEDS ORDERED: Propofol* 10 MG/ML 20 ML BTL ONE (10:27)
[2019-04-07] MEDS ORDERED: Dexamethasone IV* 4 MG/ML 1 ML (4 MG) ONE (10:27)
[2019-04-07] MEDS ORDERED: EPHEDrine (Pressors)* 50 MG/ML VIAL ONE (10:27)
[2019-04-07] MEDS ORDERED: Ondansetron INJ* 2 MG/ML VIAL ONE (10:27)
[2019-04-07] MEDS ORDERED: Ketorolac INJ* 30 MG/ML 1 ML VIAL ONE (10:27)
[2019-04-07] MEDS ORDERED: Succinylcholine* 20 MG/ML 10 ML VIAL ONE (10:27)
[2019-04-07] MEDS ORDERED: HYDROcodone/ACETAMIN 5-325 MG* 1 TAB PO PRN ×3 (11:00→14:43)
[2019-04-07] MEDS ORDERED: HYDROmorphone INJ1* 1 MG/ML SYRINGE IV PRN (11:00)
[2019-04-07] MEDS ORDERED: DiMENhydriNATE IV* 50 MG/ML VIAL IV PUSH PRN (11:00)
[2019-04-07] MEDS ORDERED: Naloxone* 0.4 MG/ML 1 ML VIAL IV PRN (11:00)
[2019-04-07] MEDS ORDERED: Neostigmine Methylsulfate* 1 MG/ML 10 ML VIAL (1 mg/ml) ONE (11:02)
[2019-04-07] MEDS ORDERED: Glycopyrrolate IV* 0.2 MG/ML 1 ML VIAL ONE (11:02)
--- NOTE | 2019-04-07 11:30 | OP ---
Operative Report - Blank - Operative Report Date of Operation: 04/07/19 Note: Brief Operative Note Preop Dx: acute acalculous cholecystitis Postop Dx: same; also umbilical hernia Procedure: laparoscopic cholecystectomy; repair umbilical hernia Anesthesia: GET Surgeon: Devi Pocket Builder: ALEKSANDRA Patel PA-S Fluids: 1200 ml RL EBL: < 50 ml Specimen: gallbladder Drains: none Findings: dictated
[2019-04-07] MEDS: Pantoprazole TAB * 40 MG TAB PO SCH (11:40)
[2019-04-07] MEDS ORDERED: Acetaminophen TAB* 325 MG PO PRN (14:41)
[2019-04-07] MEDS ORDERED: Atorvastatin* 20 MG TAB PO SCH (18:00)
[2019-04-07] MEDS ORDERED: Labetalol IV* 5 MG/ML 20 ML VIAL ONE (18:16)
[2019-04-07] MEDS: Metoprolol Succinate XL TAB* 25 MG PO SCH (21:11)
[2019-04-08] MEDS: Piperacillin/Tazobactam VIAL*) 3.375 GM in NS 0.9% 100 ML* 100 ML IVPB SCH ×2 (02:41→08:24)
[2019-04-08 07:54] VITALS: BP 117/64
[2019-04-08] MEDS: Aspirin EC TAB* 81 MG TAB.EC PO SCH (08:25)
[2019-04-08] MEDS: Pantoprazole TAB * 40 MG TAB PO SCH (08:25)
[2019-04-08] MEDS: Famotidine TAB* 20 MG PO SCH (08:25)
--- NOTE | 2019-04-08 08:34 | OP ---
CC: Willy Arrington MD * DATE OF OPERATION: 04/07/19 - ROOM #349 DATE OF : 40 SURGEON: Jered Quinonez MD COAL MINER: SONAM Lin ANESTHESIOLOGIST: Thao Han MD ANESTHESIA: General endotracheal. PRE-OP DIAGNOSIS: Acute acalculous cholecystitis. POST-OP DIAGNOSES: Acute acalculous cholecystitis and umbilical hernia. OPERATIVE PROCEDURE: Laparoscopic cholecystectomy and open repair of umbilical hernia. ESTIMATED BLOOD LOSS: Less than 50 mL. IV FLUIDS: 1.2 L crystalloid. SPECIMENS: Gallbladder. DRAINS: None. COMPLICATIONS: None. COUNT: The instrument, needle, and sponge counts were correct. DESCRIPTION OF PROCEDURE: The patient was brought to the operating room and placed on the table supine. Sequential compression devices were placed on both lower extremities. General anesthesia was administered. The abdomen was prepped and draped in the usual sterile fashion. Time-out was performed. Local anesthetic was infiltrated into the skin and soft tissue prior to making each incision. Entry into the abdomen was through a curvilinear infraumbilical incision created in this fashion due to the identification of an umbilical hernia. After the skin was elevated and umbilical stalk divided, umbilical hernia was entered and peritoneal cavity was entered. A 12-mm trocar was placed and carbon-dioxide was insufflated to a pressure of 15 mmHg. Under direct visualization, 5 mm trocars were placed in the subxiphoid position and two in the right upper quadrant. The gallbladder appeared to be acutely inflamed, pale pink in color with edema. The gallbladder was able to be grasped with the fundus and was retracted cephalad. Attachments of omentum to the infundibulum were divided using a combination of cautery and blunt dissection. The peritoneum was scored along the infundibulum. Both medial and lateral aspects of the peritoneum could be dissected free to identify the gallbladder wall. This was dissected down to identify the cystic duct and cystic artery. A critical view was obtained prior to each structure being doubly clipped and divided. The gallbladder was then freed from its attachments to the liver bed using the cautery and staying in an avascular plane. Once the gallbladder was freed, it was placed into an endoscopic retrieval bag and retrieved through the umbilical site. Hemostasis was assured. Clips were noted to be intact. Ports were removed under direct visualization. Carbon-dioxide was released. The umbilical hernia was then repaired with 0-Vicryl suture in a figure-of- eight fashion to approximate the fascia. Umbilical stalk was reapproximated to the anterior fascia with 3-0 Vicryl. Skin was closed with 4-0 Monocryl in a subcuticular fashion and Steri-Strips applied. The patient tolerated the procedure well, was extubated and transferred to the recovery room in stable condition. [id number] #: [id number] [facility]Yo[facility]
[2019-04-08] MEDS ORDERED: predniSONE TAB* 1 MG PO SCH (09:00)
[2019-04-08 11:14] LABS: ABS Lymphocytes 0.8 10^3/ul (1.0-4.8); ABS Monocytes 0.7 10^3/ul (0-0.8); Eosinophil % 0.2 %; Hematocrit 38 % (42-52); Hemoglobin 13.2 g/dL (14.0-18.0); Lymphocyte % 6.4 %; Mean Corpuscular HGB Conc 35 g/dL (31-36); Mean Corpuscular Hemoglobin 33 pg (27-31); Mean Corpuscular Volume 95 fL (80-94); Mean Platelet Volume 10.7 fL (7.4-10.4); Platelet Count 182 10^3/uL (150-450); Red Blood Count 3.99 10^6 /uL (4.18-5.48); Red Cell Distribution Width 12 % (10-15); White Blood Count 12.5 10^3/uL (3.5-10.8)
[2019-04-08 11:16] LABS: CO2 Carbon Dioxide 18 mmol/L (22-32); Calcium 8.7 mg/dL (8.6-10.3); Chloride 108 mmol/L (101-111); Sodium 136 mmol/L (135-145)
[2019-04-08 11:22] LABS: BUN/Creatinine Ratio 13.3 (8-20); Blood Urea Nitrogen 12 mg/dL (6-24); EGFR African American 98.7 (>60); EGFR Non-African American 81.6 (>60); Glucose 190 mg/dL (70-100)
--- NOTE | 2019-04-08 11:54 | DS ---
CC: Dr. Willy Arrington at [facility] * DISCHARGE SUMMARY: DATE OF ADMISSION: 04/06/19 DATE OF DISCHARGE: 04/08/19 ATTENDING SURGEON: Dr. Jered Quinonez.* (DICTATED BY SONAM RODRIGUEZ) HOSPITAL COURSE: Please referred to admission history and physical as well as medical consultation by hospitalist and operative note for details. Briefly, the patient was admitted the evening of 04/06/[address] Matthews with clinical diagnosis of acalculous cholecystitis. He was begun on IV antibiotics and seen in medical consultation by Dr. Garsia. He was taken to the operating room on 04/07/[address] Quinonez, at which time, he underwent laparoscopic cholecystectomy for acute cholecystitis. Surgery itself was uneventful. He remained in the hospital for additional IV antibiotics over the next 24 hours. As of the morning of discharge, postop day #1, he was doing well with pain well controlled with Tylenol. He is tolerating diet well. His temperature is 97.6, blood pressure 117/64, pulse 58, respirations 17, and room air saturation 95%. Heart is regular. Lungs are clear to auscultation. Abdomen is soft with mild incisional tenderness with some minor ecchymosis at the umbilical incision. The remainder of the abdomen is soft and nontender. IMPRESSION: Status post laparoscopic cholecystectomy for acute acalculous cholecystitis, doing well and ready for discharge. PLAN: Home today (no further antibiotics required) with surgical followup scheduled for 04/16/19 in our office. He will resume his usual home medications including his prednisone taper. He is discharged to home in good condition. SONAM RODRIGUEZ [id number] #: [id number] [facility]ITALYoandy
[2019-04-08 11:58] LABS: Anion Gap 10 mmol/L (2-11)
== END 2019-04-08 11:35 | disposition home or self-care (01) ==
LOC: ED 13:49 → SSU 20:08
PROVIDERS: ADMIT Surgery; ATTEND Surgery
DX: K81.0 Acute cholecystitis (principal); K42.9 Umbilical hernia without obstruction or gangrene; R10.13 Epigastric pain; I25.10 Atherosclerotic heart disease of native coronary artery without angina pectoris; I25.2 Old myocardial infarction; Z95.5 Presence of coronary angioplasty implant and graft; M35.3 Polymyalgia rheumatica; K21.9 Gastro-esophageal reflux disease without esophagitis; Z86.2 Personal history of diseases of the blood and blood-forming organs and certain disorders involving the immune mechanism; Z87.442 Personal history of urinary calculi; Z79.82 Long term (current) use of aspirin; Z79.899 Other long term (current) drug therapy; Z87.891 Personal history of nicotine dependence; I10 Essential (primary) hypertension; E78.00 Pure hypercholesterolemia, unspecified; Z85.828 Personal history of other malignant neoplasm of skin; Z87.11 Personal history of peptic ulcer disease; J30.9 Allergic rhinitis, unspecified
CPT/HCPCS: 36415; 74177; 76705; 80048; 80053; 81003; 83605; 84484; 85025; 85652; 86140; 88304; 93005; 96361; 96365; 96375; 96376; 99283; A9270-GY; G0378; J0330; J1100; J1240; J1885; J2250; J2270; J2405; J2543; J2704; J2710; J3010; Q9967